=== PATIENT | female | born 1980 | race Caucasian/White ===

== ENCOUNTER 2018-11-06 20:52 | Emergency (ER) | payer SELFPAY ==
[~2018-11-06] VITALS: Ht 157.5 cm; Wt 90.7 kg
[~2018-11-06 20:52] MED LIST: REQUIP5 MG PO
[2018-11-06 21:03] VITALS: Ht 157.5 cm; Wt 90.7 kg
[2018-11-06] MEDS ORDERED: REQUIP1 MG PO (21:35)
[2018-11-06 22:07] VITALS: BP 132/78
== END 2018-11-06 22:08 | disposition home or self-care (01) ==
LOC: D.ER 20:52
DX: R51 Headache (principal); F15.21 Other stimulant dependence, in remission

== ENCOUNTER 2018-12-18 17:42 | Emergency (ER) | payer SELFPAY ==
[~2018-12-18] VITALS: Ht 157.5 cm; Wt 81.4 kg
[~2018-12-18 17:42] MED LIST changes: +REQUIP1 MG PO
[2018-12-18 18:15] VITALS: Ht 157.5 cm; Wt 81.4 kg
[2018-12-18] MEDS ORDERED: PERMETHRIN60 GM TOPICAL (19:48)
[2018-12-18 20:35] VITALS: BP 133/86
== END 2018-12-18 20:35 | disposition home or self-care (01) ==
LOC: D.ER 17:42
DX: B88.8 Other specified infestations (principal)

== ENCOUNTER 2019-06-02 06:15 | Emergency (ER) | payer OTHER ==
[~2019-06-02] VITALS: Ht 157.5 cm; Wt 80.3 kg
[~2019-06-02 06:15] MED LIST changes: +PERMETHRIN60 GM TOPICAL
[2019-06-02 06:19] VITALS: Ht 157.5 cm; Wt 80.3 kg
[2019-06-02 06:58] LABS: BASOPHILS 0.2 % (0-2); EOSINOPHILS 2.8 % (0-7); HEMATOCRIT 33.9 % (36.0-48.0); HEMOGLOBIN 10.6 g/dL (12-16); IMMATURE GRANULOCYTES 0.4 % (0-5); LYMPHOCYTES 26.9 % (15-50); MCH 24.4 pg (26.0-34.0); MCHC 31.3 g/dL (31.0-37.0); MCV 77.9 fL (80.0-100.0); MEAN PLATELET VOLUME 10.1 fL (7.4-10.4); MONOCYTES 6.8 % (2-11); NEUTROPHILS 62.9 % (40-80); RBC 4.35 10x6/uL (4.00-5.40); RDW 15.2 % (11.5-14.5); WBC 8.3 10x3/uL (4.8-10.8)
[2019-06-02 07:04] LABS: PLATELET COUNT 363 10x3/uL (130-400)
[2019-06-02 07:05] LABS: APTT 23.8 SECONDS (22.8-39.4); INR 0.9 (0.85-1.17); PROTIME 11.7 SECONDS (11.6-15.0)
[2019-06-02 07:12] LABS: ALBUMIN 3.3 g/dL (3.4-5.0); ALKALINE PHOSPHATASE 78 U/L (46-116); ALT (SGPT) 14 U/L (10-68); BILIRUBIN - TOTAL 0.16 mg/dL (0.2-1.3); CALC OSMOLALITY 275 mosm/kg (275-300); CALCIUM 8.5 mg/dL (8.5-10.1); CHLORIDE - SERUM 103 mmol/L (98-107); CREATININE - SERUM 0.7 mg/dL (0.6-1.3); GLUCOSE 96 mg/dL (74-106); POTASSIUM - SERUM 3.9 mmol/L (3.5-5.1); PROTEIN - SERUM 7.6 g/dL (6.4-8.2); SODIUM 137 mmol/L (136-145); UREA NITROGEN 17 mg/dL (7-18); eGFR NON AFRICAN AMERICAN > 90 mL/min (90-120)
[2019-06-02 07:24] LABS: CKMB 0.9 U/L (0.0-3.6); CREATINE KINASE 80 UL (21-215); MAGNESIUM - SERUM 1.9 mg/dL (1.8-2.4)
[2019-06-02 07:27] LABS: TROPONIN-I < 0.017 ng/mL (0.000-0.060)
[2019-06-02] MEDS ORDERED: ULTRAM50 MG PO (07:56)
[2019-06-02 08:11] VITALS: BP 125/62
== END 2019-06-02 08:05 | disposition home or self-care (01) ==
LOC: D.ER 06:15
PROVIDERS: Family Medicine
DX: M25.512 Pain in left shoulder (principal)

== ENCOUNTER 2019-08-24 18:56 | Emergency (ER) | payer SELFPAY ==
[~2019-08-24] VITALS: Ht 157.5 cm; Wt 72.7 kg
[~2019-08-24 18:56] MED LIST changes: +ULTRAM50 MG PO
[2019-08-24 19:42] VITALS: Ht 157.5 cm; Wt 72.7 kg
[2019-08-24 20:21] LABS: APPEARANCE HAZY (CLEAR); BILIRUBIN NEGATIVE (NEGATIVE); COLOR YELLOW (YELLOW); GLUCOSE NEGATIVE (NEGATIVE); KETONE NEGATIVE (NEGATIVE); NITRITE NEGATIVE (NEGATIVE); PROTEIN 1+ mg/dL (NEGATIVE); UROBILINOGEN NORMAL (NORMAL)
[2019-08-24 20:25] LABS: BASOPHILS 0.4 % (0-2); EOSINOPHILS 1.4 % (0-7); HEMOGLOBIN 10.6 g/dL (12-16); IMMATURE GRANULOCYTES 0.1 % (0-5); LYMPHOCYTES 20.1 % (15-50); MCH 23.5 pg (26.0-34.0); MCHC 30.3 g/dL (31.0-37.0); MCV 77.6 fL (80.0-100.0); MEAN PLATELET VOLUME 9.9 fL (7.4-10.4); MONOCYTES 7.8 % (2-11); NEUTROPHILS 70.2 % (40-80); PLATELET COUNT 420 10x3/uL (130-400); RBC 4.51 10x6/uL (4.00-5.40); RDW 15.1 % (11.5-14.5); WBC 7.2 10x3/uL (4.8-10.8)
[2019-08-24 20:26] LABS: BACTERIA MODERATE /hpf (NEGATIVE); CALCIUM OXALATE CRYSTALS 0-5 /hpf (NONE SEEN); MUCUS <1+ /lpf (NONE SEEN); WHITE CELLS - URINE 0-5 /hpf (NEGATIVE)
[2019-08-24 20:30] LABS: UDS - AMPHET POSITIVE QUAL (NEGATIVE); UDS - BARB NEGATIVE QUAL (NEGATIVE); UDS - BENZO NEGATIVE QUAL (NEGATIVE); UDS - COCAINE NEGATIVE QUAL (NEGATIVE); UDS - OPIATE NEGATIVE QUAL (NEGATIVE); UDS - PCP NEGATIVE QUAL (NEGATIVE); UDS - THC NEGATIVE QUAL (NEGATIVE)
[2019-08-24 20:30] LABS: ALBUMIN 3.3 g/dL (3.4-5.0); ANION GAP 13.1 mmol/L (8-16); BILIRUBIN - TOTAL 0.17 mg/dL (0.2-1.3); CALCIUM 8.4 mg/dL (8.5-10.1); CARBON DIOXIDE 26.4 mmol/L (21.0-32.0); CREATININE - SERUM 0.9 mg/dL (0.6-1.3); POTASSIUM - SERUM 3.5 mmol/L (3.5-5.1); PROTEIN - SERUM 7.8 g/dL (6.4-8.2)
[2019-08-24] MEDS ORDERED: MACROBID100 MG PO (20:46)
[2019-08-24 21:06] VITALS: BP 94/56
[2019-08-28 14:09] LABS: CHLAMYDIA TRACHOMATIS, NAA Negative (Negative)
== END 2019-08-24 21:06 | disposition home or self-care (01) ==
LOC: D.ER 18:56
PROVIDERS: Emergency Medicine; Family Medicine
DX: N39.0 Urinary tract infection, site not specified (principal)